=== PATIENT | female | born 1990 | race American Indian/Alaskan Native ===

== ENCOUNTER 2018-12-21 16:43 | Emergency (ER) | payer MEDICAID, OTHER ==
[2018-12-21 17:19] VITALS: BP 133/68
--- NOTE | 2018-12-21 17:19 | Emergency Department Report ---
ED ENT HPI - General Chief complaint: Dental/Oral Stated complaint: TOOTHACHE Time Seen by Provider: 12/21/18 16:46 Source: patient Mode of arrival: Ambulatory Limitations: No Limitations - History of Present Illness Initial comments: 28 YO FEMALE WHO HAS APPNT IN DECEMBER TO GET HER WISDOM TEETH EXTRACTED COMES TODAY WITH PAIN AND IS OUT OF HER MOTRIN AND ANTIBIOTIC NO ABSCESS ABC INTACT TAKING PO MD complaint: tooth pain Context- Dental: history of dental caries Associated Symptoms: toothache - Related Data Previous Rx's Medication Instructions Recorded Last Taken Type Amoxicillin 500 mg PO BID #20 capsule 12/21/18 Unknown Rx Ibuprofen [Motrin] 800 mg PO Q8HR PRN #50 tablet 12/21/18 Unknown Rx Allergies Allergy/AdvReac Type Severity Reaction Status Date / Time No Known Allergies Allergy Unverified 12/21/18 03:00 ED Dental HPI - General Chief complaint: Dental/Oral Stated complaint: TOOTHACHE Time Seen by Provider: 12/21/18 16:46 Source: patient Mode of arrival: Ambulatory Limitations: No Limitations - Related Data Previous Rx's Medication Instructions Recorded Last Taken Type Amoxicillin 500 mg PO BID #20 capsule 12/21/18 Unknown Rx Ibuprofen [Motrin] 800 mg PO Q8HR PRN #50 tablet 12/21/18 Unknown Rx Allergies Allergy/AdvReac Type Severity Reaction Status Date / Time No Known Allergies Allergy Unverified 12/21/18 03:00 ED Review of Systems ROS: Stated complaint: TOOTHACHE Other details as noted in HPI Comment: All other systems reviewed and negative ED Past Medical Hx - Past Medical History Previous Medical History?: No - Surgical History Past Surgical History?: No - Family History Family history: no significant - Social History Smoking Status: Never Smoker - Medications Home Medications: Home Medications Medication Instructions Recorded Confirmed Last Taken Type Amoxicillin 500 mg PO BID #20 capsule 12/21/18 Unknown Rx Ibuprofen [Motrin] 800 mg PO Q8HR PRN #50 tablet 12/21/18 Unknown Rx ED Physical Exam - General Limitations: No Limitations General appearance: alert, in no apparent distress - Head Head exam: Present: normocephalic - Eye Eye exam: Present: normal appearance, EOMI Pupils: Present: normal accommodation - ENT ENT exam: Present: normal exam, mucous membranes moist - Expanded ENT Exam Expanded Mouth exam: Absent: drooling, trismus, muffled voice, tongue normal, tongue elevation, laceration Teeth exam: Present: other (IMPACED WISDOM TEETH X 4) - Neck Neck exam: Present: normal inspection - Respiratory Respiratory exam: Present: normal lung sounds bilaterally - Cardiovascular Cardiovascular Exam: Present: regular rate - GI/Abdominal GI/Abdominal exam: Present: soft - Rectal Rectal exam: Present: deferred - Extremities Exam Extremities exam: Present: normal inspection - Back Exam Back exam: Present: normal inspection - Neurological Exam Neurological exam: Present: alert, oriented X3, CN II-XII intact - Psychiatric Psychiatric exam: Present: normal affect, normal mood - Skin Skin exam: Present: warm, dry, intact ED Course Vital Signs 12/21/18 17:17 Temperature 97.6 F Pulse Rate 62 Respiratory 18 Rate Blood Pressure 133/68 O2 Sat by Pulse 98 Oximetry ED Medical Decision Making - Medical Decision Making SIMPLE DENTAL ABC INTACT. NO ABSCESS TAKING PO HAS DMD APPNT Vital Signs (72 hours) 12/21/18 17:17 Temperature 97.6 F Pulse Rate 62 Respiratory 18 Rate Blood Pressure 133/68 O2 Sat by Pulse 98 Oximetry Critical care attestation.: If time is entered above; I have spent that time in minutes in the direct care of this critically ill patient, excluding procedure time. ED Disposition Clinical Impression: Pain, dental Disposition: [id number] TO HOME OR SELFCARE Is pt being admited?: No Does the pt Need Aspirin: No Condition: Stable Instructions: Dental Caries (ED), Toothache (ED) Additional Instructions: SEE YOUR DENTIST TRISH Prescriptions: Amoxicillin 500 mg PO BID #20 capsule Ibuprofen [Motrin] 800 mg PO Q8HR PRN #50 tablet PRN Reason: Pain , Severe (7-10) Referrals: [facility]Outside[facility] - 3-5 Days Forms: Work/School Release Form(ED) Time of Disposition: 17:17
== END 2018-12-21 17:52 | disposition home or self-care (01) ==
LOC: ED 16:43
DX: K08.89 Other specified disorders of teeth and supporting structures (principal)
CPT/HCPCS: 99282